=== PATIENT | female | born 1960 | race Caucasian/White ===

== ENCOUNTER 2019-08-07 07:12 | Day surgery (SDC) | payer OTHER ==
[2019-07-31 11:45] LABS: CLARITY,URINE CLEAR (Clear); COLOR,URINE YELLOW (Yellow); GLUCOSE, URINE NEGATIVE (Neg); KETONES,URINE NEGATIVE (Neg); LEUKOCYTE ESTERASE ,URINE NEGATIVE (Neg); NITRITES, URINE NEGATIVE (Neg); OCCULT BLOOD,URINE TRACE-INTACT (Neg); PROTEIN,URINE NEGATIVE (Neg); UROBILINOGEN,URINE 0.2 E.U/dL (0.2-1.0)
[2019-07-31 11:48] LABS: UA COLLECTION TYPE VOIDED
[2019-07-31 11:56] LABS: BACTERIA,URINE NONE SEEN /HPF (Neg); RBC,URINE 0-2 /HPF (0-2); SQUAMOUS EPITHELIAL CELL,UR FEW /LPF (FEW); WBC,URINE NONE SEEN /HPF (0-4)
[2019-07-31 12:46] LABS: BASOPHILS % (AUTO) 0.8 % (0-1); EOSINOPHILS # (AUTO) 0.2 X10'3 (0-0.9); EOSINOPHILS % (AUTO) 2.7 % (0-6); LYMPHOCYTES # (AUTO) 1.5 X10'3 (1.1-4.8); LYMPHOCYTES % (AUTO) 25.4 % (21-51); MEAN CORPUSCULAR HEMOGLOBIN 29.5 PG (27.0-31.0); MEAN CORPUSCULAR HGB CONC 33.3 g/dL (33.0-36.5); MEAN CORPUSCULAR VOLUME 88.5 FL (78-98); MEAN PLATELET VOLUME 8.4 FL (7.4-10.4); MONOCYTES # (AUTO) 0.5 X10'3 (0-0.9); MONOCYTES % (AUTO) 7.9 % (2-12); NEUTROPHILS # (AUTO) 3.9 X10'3 (1.8-7.7); NEUTROPHILS % (AUTO) 63.2 % (42-75); PRE OP PLATELET COUNT 386 X10'3 (140-440); RED BLOOD COUNT 4.75 X10'6 (4.20-5.60); RED CELL DISTRIBUTION WIDTH 14.3 % (11.5-14.5)
[2019-07-31 13:06] LABS: ALBUMIN 3.9 G/DL (3.4-5.0); ALKALINE PHOSPHATASE 80 IU/L (46-116); BLOOD UREA NITROGEN 14 MG/DL (7-18); BUN/CREATININE RATIO 12.6 (6.6-38.0); CALCIUM 9.4 MG/DL (8.5-10.1); CHLORIDE 107 MMOL/L (99-107); CREATININE 1.11 MG/DL (0.40-0.90); PRE OP ALT 27 U/L (30-65); PRE OP ANION GAP 9 (8-16); PRE OP AST 19 U/L (10-37); PRE OP BILIRUB, TOTAL 0.3 MG/DL (0.0-1.0); PRE OP GLUCOSE 114 MG/DL (70-104); PRE OP SODIUM 143 MMOL/L (135-145); TOTAL CARBON DIOXIDE 26.6 MMOL/L (24-32); TOTAL PROTEIN 7.9 G/DL (6.4-8.2); eGFR 50 ML/MIN
[2019-08-07] VITALS (9 sets, daily range): BP systolic 124–159; BP diastolic 72–84
[~2019-08-07] VITALS: Ht 165.1 cm; Wt 90.0 kg
[~2019-08-07 07:12] MED LIST: ALBU18HF2 INH; OMEP-84 PO; albuterol 2.5 MG/3 ML nebule NEB ONE; ceFOXitin 2GM-NS 100mL ADDvant 100 ML IV ONE; ceFOXitin sod/dextrose 2g/50ml 50 ML IV ONE; diazepam 5mg tablet PO PRN; famotidine 20mg tablet PO ONE; ringers solution, lacted 1,000 ML IV SCH
[2019-08-07] MEDS ORDERED: LIDOcaine 1% (10mg/ml) 2ml vial ONE (08:01)
[2019-08-07] MEDS ORDERED: BUPIVAcaine/PF 2.5mg/ml (0.25%) 10ml vial ONE (08:30)
[2019-08-07] MEDS ORDERED: ringers solution, lacted 1,000 ML IV SCH (08:32)
[2019-08-07] MEDS ORDERED: ondansetron/PF 4mg/2ml inj IV PRN (08:35)
[2019-08-07] MEDS ORDERED: meperidine/PF 25mg/ml syringe IV PRN ×3 (08:35)
[2019-08-07] MEDS ORDERED: proCHLORperazine 10 MG/2 ml inj IV PRN (08:35)
[2019-08-07] MEDS ORDERED: dexamethasone sod phosphate 10mg/ml inj ONE (09:22)
[2019-08-07] MEDS ORDERED: sevoflurane 250ml liquid IH ONE (09:22)
[2019-08-07] MEDS ORDERED: MIDAZolam 5mg/5ml vial ONE (09:27)
[2019-08-07] MEDS ORDERED: LIDOcaine 2% (20mg/ml) 5ml vial ONE (09:29)
[2019-08-07] MEDS ORDERED: propofol inj 20 ML IV ONE (09:29)
[2019-08-07] MEDS ORDERED: ondansetron/PF 4mg/2ml inj ONE (09:37)
[2019-08-07] MEDS ORDERED: rocuronium 10mg/ml inj IV ONE (09:37)
[2019-08-07] MEDS ORDERED: acetaminophen 1,000mg/100ml IV 100 ML IV ONE (09:40)
[2019-08-07] MEDS ORDERED: ketorolac trometh. 30mg/ml inj. ONE (09:41)
[2019-08-07] MEDS ORDERED: BUPIVAcaine/PF 2.5 mg/ml (0.25%) 30ml vial ONE (09:44)
[2019-08-07] MEDS ORDERED: glycopyrrolate 0.2mg/ml inj ONE (09:58)
[2019-08-07] MEDS ORDERED: neostigmine methylsulfate 1 MG/ML 10ml vial ONE (09:58)
[2019-08-07] MEDS ORDERED: labetalol 20mg/4ml (5mg/ml) syringe IV ONE (09:58)
--- NOTE | 2019-08-07 10:30 | NUR ---
Received from OR via BED , accompanied by Anesthesiologist DR QUINTEROS and report given by Anesthesiolgist. PATIENT WAKING UP, DENIES PAIN, V/S WNL, NEUROVASCULAR CHECKS INTACT, 20G PIV LUE, SCD ON, BANDAIDS TO LAP SIGHTS OF ABDOMEN CDI.
--- NOTE | 2019-08-07 11:30 | NUR ---
PATIENT A&OX4, DENIES PAIN, V/S WNL, NEUROVASCULAR CHECKS INTACT, 20G PIV D/C, SCD OFF, BANDAIDS TO LAP SIGHTS OF ABDOMEN CDI.. I HAVE REVIEWED D/C INSTRUCTIONS WITH PATIENT AND FAMILY HAVE VERBALIZED UNDERSTANDING.PATIENT WAS D/C HOME WITH ALL BELONGINGS AND FAMILY GAVE TRANSPORT HOME
== END 2019-08-07 11:30 | disposition home or self-care (01) ==
LOC: PAS 07:12
PROVIDERS: ATTEND Surgery
DX: K80.10 Calculus of gallbladder with chronic cholecystitis without obstruction (principal); G89.29 Other chronic pain; E78.5 Hyperlipidemia, unspecified; J45.909 Unspecified asthma, uncomplicated; F41.9 Anxiety disorder, unspecified; I10 Essential (primary) hypertension; M19.90 Unspecified osteoarthritis, unspecified site; Z87.01 Personal history of pneumonia (recurrent); Z90.710 Acquired absence of both cervix and uterus; Z98.1 Arthrodesis status; Z98.890 Other specified postprocedural states; Z88.8 Allergy status to other drugs, medicaments and biological substances; Z88.5 Allergy status to narcotic agent; Z88.1 Allergy status to other antibiotic agents; Z79.899 Other long term (current) drug therapy; Z11.59 Encounter for screening for other viral diseases; Z85.41 Personal history of malignant neoplasm of cervix uteri
CPT/HCPCS: 36415; 47562; 80053; 81001; 82948; 85025; 93005; J0131; J0694; J1100; J1885; J2001; J2250; J2405; J2704; J2710; J3490; J7120; U0003; A4215; A4618; A7000